=== PATIENT | male | born 1990 | race Caucasian/White ===

== ENCOUNTER 2020-09-16 22:57 | Emergency (ER) | payer OTHER ==
[2020-09-16 23:03] VITALS: BP 125/73; PULSE 78; TEMP 98.6; BMI 26.0
[2020-09-16] MEDS ORDERED: KETOROLAC TROMETHAMINE 30 MG/1 ML VIAL IM ONE (23:13)
[2020-09-16] MEDS ORDERED: diazePAM 5 MG TABLET PO ONE (23:13)
== END 2020-09-16 23:54 | disposition home or self-care (01) ==
LOC: JER 22:57
PROC: 3E0233Z Introduction of Anti-inflammatory into Muscle, Percutaneous Approach (ICD-10-PCS; principal; 2020-09-16)
DX: M54.6 Pain in thoracic spine (principal)
CPT/HCPCS: 99284-25

== ENCOUNTER 2020-12-21 02:32 | Emergency (ER) | payer OTHER ==
[2020-12-21 02:39] VITALS: BP 136/79; PULSE 70; TEMP 98.4; BMI 32.3
[2020-12-21] MEDS ORDERED: KETOROLAC TROMETHAMINE 60 MG/2 ML VIAL IM ONE (02:59)
[2020-12-21] MEDS ORDERED: LIDOCAINE 5% TOPICAL PATCH TP ONE (02:59)
[2020-12-21] MEDS ORDERED: diazePAM 5 MG TABLET PO ONE (03:00)
[2020-12-21] MEDS ORDERED: KETOROLAC TROMETHAMINE 30 MG/1 ML VIAL ONE (03:01)
[2020-12-21] MEDS ORDERED: LIDOCAINE 5% TOPICAL PATCH ONE (03:01)
[2020-12-21] MEDS ORDERED: diazePAM 5 MG TABLET ONE (03:08)
[2020-12-21] MEDS ORDERED: METHOCARBAMOL 500 MG TABLET PO ONE (04:00)
[2020-12-21] MEDS ORDERED: LIDOCAINE PATCH REMOVAL MC ONE (15:00)
== END 2020-12-21 05:12 | disposition home or self-care (01) ==
LOC: JER 02:32
PROC: 3E0233Z Introduction of Anti-inflammatory into Muscle, Percutaneous Approach (ICD-10-PCS; principal; 2020-12-21)
DX: M54.5 Low back pain (principal)
CPT/HCPCS: 72131-TC; 99284-25

== ENCOUNTER 2021-09-04 11:48 | Emergency (ER) | payer OTHER, BC ==
[2021-09-04 12:21] VITALS: BP 121/80; PULSE 64; BMI 26.4
[2021-09-04 12:22] VITALS: TEMP 97.6
[2021-09-04] MEDS ORDERED: CYCLOBENZAPRINE HCL 10 MG TABLET (FP) PO ONE (12:41)
[2021-09-04] MEDS ORDERED: IBUPROFEN 600 MG TABLET (FP) PO ONE ×2 (12:41→12:45)
[2021-09-04] MEDS ORDERED: CYCLOBENZAPRINE HCL 10 MG TABLET (FP) ONE (12:45)
== END 2021-09-04 12:52 | disposition home or self-care (01) ==
LOC: JERFT 11:48
DX: S76.312A Strain of muscle, fascia and tendon of the posterior muscle group at thigh level, left thigh, initial encounter (principal); W00.0XXA Fall on same level due to ice and snow, initial encounter
CPT/HCPCS: 99283-25

== ENCOUNTER 2024-02-02 17:27 | Emergency (ER) | payer OTHER, BC ==
[2024-02-02 18:11] VITALS: BP 128/84; PULSE 74; RESP 16; TEMP 97.8; BMI 29.0
[2024-02-02] MEDS ORDERED: METHOCARBAMOL 500 MG TABLET ONE (18:39)
[2024-02-02] MEDS ORDERED: IBUPROFEN 400 MG TABLET (FP) PO ONE (18:40)
[2024-02-02] MEDS ORDERED: LIDOCAINE 5% TOPICAL PATCH ONE (18:40)
[2024-02-02] MEDS: IBUPROFEN 400 MG TABLET (FP) PO ONE (19:01)
[2024-02-02] MEDS: METHOCARBAMOL 750 MG TAB PO ONE (19:02)
[2024-02-02] MEDS: LIDOCAINE 5% TOPICAL PATCH TP ONE (19:02)
[2024-02-02] MEDS ORDERED: LIDOCAINE PATCH REMOVAL MC SCH (22:00)
== END 2024-02-02 20:03 | disposition home or self-care (01) ==
LOC: JER 17:27
DX: M54.2 Cervicalgia (principal); X50.0XXA Overexertion from strenuous movement or load, initial encounter
CPT/HCPCS: 72125-TC; 99284-25

== ENCOUNTER 2024-03-07 05:01 | Emergency (ER) | payer OTHER, BC ==
[2024-03-07 05:04] VITALS: BP 137/71; PULSE 90; RESP 19; TEMP 98; BMI 27.7
[2024-03-07] MEDS ORDERED: METHOCARBAMOL 500 MG TABLET ONE (05:31)
[2024-03-07] MEDS ORDERED: IBUPROFEN 600 MG TABLET (FP) PO ONE (05:31)
[2024-03-07] MEDS: METHOCARBAMOL 750 MG TAB PO ONE (05:35)
[2024-03-07] MEDS: IBUPROFEN 600 MG TABLET (FP) PO ONE (05:35)
== END 2024-03-07 06:34 | disposition home or self-care (01) ==
LOC: JER 05:01
DX: M54.50 Low back pain, unspecified (principal); X50.1XXA Overexertion from prolonged static or awkward postures, initial encounter
CPT/HCPCS: 99284-25